=== PATIENT | male | born 2000 | race Caucasian/White ===

== ENCOUNTER 2019-01-01 23:41 | Emergency (ER) | payer OTHER ==
[2019-01-02] MEDS ORDERED: Lidocaine 1% w/Epinephrine 1:100K 20 ML VIAL ONE (00:16)
[2019-01-02] MEDS ORDERED: Adacel (T-DAP) 0.5 ML SYRINGE ONE (00:47)
== END 2019-01-02 01:07 | disposition home or self-care (01) ==
LOC: ERS 23:41
DX: S01.81XA Laceration without foreign body of other part of head, initial encounter (principal); Z23 Encounter for immunization; W51.XXXA Accidental striking against or bumped into by another person, initial encounter; Y93.62 Activity, american flag or touch football
CPT/HCPCS: 12011; 90471; 90715; J2001